=== PATIENT | female | born 1955 | race Caucasian/White ===

== ENCOUNTER 2017-08-17 15:41 | Day surgery (SDC) | payer MEDICARE, MEDICAID ==
[2017-08-17] MEDS ORDERED: CEFAZOLIN 1 GM INJ (16:54)
[2017-08-17] MEDS ORDERED: NEOSTIGMINE 3 MG/3 ML SYRINGE (16:54)
[2017-08-17] MEDS ORDERED: MIDAZOLAM 1 MG/ML 2 ML INJ (16:54)
[2017-08-17] MEDS ORDERED: FENTAnyl 50 MCG/ML VIAL ×2 (16:54→18:54)
[2017-08-17] MEDS ORDERED: GLYCOPYRROLATE 0.4 MG INJ (16:54)
[2017-08-17] MEDS ORDERED: DEXAMETHASONE 4 MG/ML 1 ML INJ (16:54)
[2017-08-17] MEDS ORDERED: PROPOFOL 20 ML (16:54)
[2017-08-17] MEDS ORDERED: ONDANSETRON 4 MG INJ (16:54)
[2017-08-17] MEDS ORDERED: ROCURONIUM 50 MG INJ (16:54)
[2017-08-17] MEDS ORDERED: LACTATED RINGER'S 1,000 ML IV* (17:30)
[2017-08-17] MEDS: BUPIVACAINE 0.5% (SDV) 30 ML INJ (18:28)
[2017-08-17] MEDS ORDERED: SUGAMMADEX SODIUM 200 MG/2 ML VIAL IV (18:54)
== END 2017-08-17 20:00 | disposition home or self-care (01) ==
LOC: SDS 15:41
DX: M67.431 Ganglion, right wrist (principal); M94.231 Chondromalacia, right wrist; M65.841 Other synovitis and tenosynovitis, right hand; I10 Essential (primary) hypertension; J43.9 Emphysema, unspecified
CPT/HCPCS: 25111